=== PATIENT | male | born 1945 | race Caucasian/White ===

== ENCOUNTER 2017-03-21 14:05 | Emergency (ER) | payer MEDICARE, BC ==
[2017-03-21] MEDS ORDERED: Morphine 2 MG/ML Syringe IVPUSH PRN (14:32)
[2017-03-21] MEDS ORDERED: Sodium Chloride 0.9% 10 ML Syringe FLUSH PRN (14:32)
--- NOTE | 2017-03-21 14:37 | EDM.PDOC ---
ED HPI GENERAL MEDICAL PROBLEM - General Chief Complaint: Chest Pain Stated Complaint: CHEST PAINS Time Seen by Provider: 03/21/17 14:20 Source of Information: Reports: Patient, RN Notes Reviewed History Limitations: Reports: No Limitations - History of Present Illness INITIAL COMMENTS - FREE TEXT/NARRATIVE: 72-year-old gentleman presents emergency department day complaint of chest pain , his chest pain is predominantly on the right side it started one hour ago he does have a history of coronary artery disease with myocardial infarction, last stress test was 5 years ago, rates the chest pain 2 out of 10 constant in nature no change with position or exertion did take 7 baby aspirin prior to arrival. Denies any nausea vomiting shortness of breath or diaphoresis, does have a history of reflux disease also hypotensive secondary to nitroglycerin - Related Data Allergies Allergy/AdvReac Type Severity Reaction Status Date / Time No Known Allergies Allergy Verified 02/12/14 08:52 Home Meds: Home Meds Aspirin [Adult Low Dose Aspirin EC] 81 mg PO BID 02/12/14 [History] Metoprolol Succinate 12.5 mg PO DAILY 02/12/14 [History] Simvastatin [Zocor] 40 mg PO BEDTIME 02/12/14 [History] Past Medical History Other HEENT History: upper jaw pain - chronic Cardiovascular History: Reports: CAD, Hypertension, [place], Stents Other Musculoskeletal History: Left hip pain - Past Surgical History Cardiovascular Surgical History: Reports: Coronary Artery Stent Social & Family History - Family History Cardiac: Reports: Bypass, CAD, [place] Neurological: Reports: CVA, TIA - Recreational Drug Use Recreational Drug Use: No ED ROS GENERAL - Review of Systems Review Of Systems: See Below Constitutional: Reports: No Symptoms HEENT: Reports: No Symptoms Respiratory: Reports: No Symptoms. Denies: Shortness of Breath Cardiovascular: Reports: Chest Pain GI/Abdominal: Denies: Abdominal Pain, Nausea, Vomiting Musculoskeletal: Reports: No Symptoms Skin: Reports: No Symptoms Neurological: Reports: No Symptoms Psychiatric: Reports: No Symptoms ED EXAM, GENERAL - Physical Exam Exam: See Below Free Text/Narrative:: General: Male, not in any distress, alert and oriented x3 HEENT: head is atraumatic normocephalic, eyes pupils equal round reactive to light, sclera clear no conjunctivitis appreciated. Ears tympanic membranes clear and figueroa landmarks and light reflex are present bilaterally canals are clear. Nose no septal deviation, nares are clear, no blood present. Mouth mucosa is moist and pink no erythema or exudate noted in soft palate, tongue is midline uvula is midline, dentition is intact. Neck: Supple no thyromegaly no tracheal deviation. Nodes: Cervical nodes subclavicular nodes nontender no palpable lymphadenopathy noted. Lungs: clear to auscultation bilaterally with symmetrical respirations, no adventitious noise appreciated. CV: Regular rate and rhythm S1 and S2 appreciated no murmurs rubs or gallops noted. Chest no tenderness to palpation Abdomen: Soft, nontender, no palpable masses or organomegaly appreciated, no distention no guarding bowel sounds are present, . Neuro: Cranial nerves II through XII grossly intact Skin: Warm and dry, intact Extremities: No lower extremity edema appreciated, pedal pulse is +2. Course - Vital Signs Last Recorded V/S: Last Vital Signs Temp 98.2 F 03/21/17 14:28 Pulse 58 L 03/21/17 17:17 Resp 19 03/21/17 17:17 BP 117/75 03/21/17 17:17 Pulse Ox 95 03/21/17 17:17 - Orders/Labs/Meds Orders: Active Orders 24 hr Category Date Time Status Cardiac Monitoring [RC] .As Directed Care 03/21/17 14:32 Active EKG Documentation Completion [RC] ASDIRECTED Care 03/21/17 14:33 Active Peripheral IV Care [RC] . DIRECTED Care 03/21/17 14:33 Active Chest 1V Frontal [CR] Stat Exams 03/21/17 14:33 Taken Heparin Sodium/D5W [Heparin 25,000 Units in D5W 500 ML] Med 03/21/17 17:15 Active 25,000 units in 500 ml IV TITRATE Morphine Med 03/21/17 14:32 Active 2 mg IVPUSH Q10M PRN Sodium Chloride 0.9% [Saline Flush] Med 03/21/17 14:32 Active 10 ml FLUSH ASDIRECTED PRN Peripheral IV Insertion Adult [OM.PC] Stat Oth 03/21/17 14:32 Ordered Saline Lock Insert [OM.PC] Stat Oth 03/21/17 14:32 Ordered EKG 12 Lead [EK] Stat Ther 03/21/17 14:33 Ordered Medication Orders Heparin Sodium/Dextrose (Heparin 25,000 Units In D5w 500 Ml) 25,000 units in 500 mls @ 0 mls/hr IV TITRATE ODALIS; 12 UNITS/KG/HR PRN Reason: Protocol Morphine Sulfate (Morphine) 2 mg IVPUSH Q10M PRN PRN Reason: Chest Pain Stop: 03/22/17 14:32 Sodium Chloride (Saline Flush) 10 ml FLUSH ASDIRECTED PRN PRN Reason: Keep Vein Open Labs: Laboratory Tests 03/21/17 03/21/17 03/21/17 Range/Units 14:44 14:44 16:35 WBC 5.0 (4.5-11.0) K/uL RBC 4.60 (4.30-5.90) M/uL Hgb 14.0 (12.0-15.0) g/dL Hct 40.8 (40.0-54.0) % MCV 89 (80-98) fL MCH 30 (27-31) pg MCHC 34 (32-36) % Plt Count 155 (150-400) K/uL Neut % (Auto) 49 (36-66) % Lymph % (Auto) 36 (24-44) % [place] % (Auto) 13 H (2-6) % Eos % (Auto) 2 (2-4) % Baso % (Auto) 1 (0-1) % Sodium 142 (140-148) mmol/L Potassium 4.0 (3.6-5.2) mmol/L Chloride 108 (100-108) mmol/L Carbon Dioxide 25 (21-32) mmol/L Anion Gap 8.6 (5.0-14.0) mmol/L BUN 19 H (7-18) mg/dL Creatinine 0.9 (0.8-1.3) mg/dL Est Cr Clr Drug Dosing 71.40 mL/min Estimated GFR (MDRD) > 60 (>60) Glucose 91 (74-106) mg/dL Calcium 8.1 L (8.5-10.1) mg/dL Total Bilirubin 1.0 (0.2-1.0) mg/dL AST 25 (15-37) U/L ALT 29 (12-78) U/L Alkaline Phosphatase 84 (46-116) U/L CK-MB (CK-2) 2.1 2.0 (0-3.6) mg/mL Troponin I 0.047 0.072 H* (0.000-0.056) ng/mL Total Protein 6.8 (6.4-8.2) g/dL Albumin 3.4 (3.4-5.0) g/dL Globulin 3.4 (2.3-3.5) g/dL Albumin/Globulin Ratio 1.0 L (1.2-2.2) Meds: Medications Generic Name Dose Route Start Last Admin Trade Name Freq PRN Reason Stop Dose Admin Heparin Sodium/Dextrose 25,000 units in 500 mls @ 0 mls/hr 03/21/17 17:15 Heparin 25,000 Units In D5w 500 Ml IV TITRATE ODALIS Protocol 12 UNITS/KG/HR Morphine Sulfate 2 mg 03/21/17 14:32 Morphine IVPUSH 03/22/17 14:32 Q10M PRN Chest Pain Sodium Chloride 10 ml 03/21/17 14:32 Saline Flush FLUSH ASDIRECTED PRN Keep Vein Open Discontinued Medications Generic Name Dose Route Start Last Admin Trade Name Freq PRN Reason Stop Dose Admin Clopidogrel Bisulfate 300 mg 03/21/17 17:14 03/21/17 17:31 Plavix PO 03/21/17 17:15 300 mg ONETIME ONE Administration Heparin Sodium (Porcine) 4,000 units 03/21/17 17:14 03/21/17 17:33 Heparin Sodium IVPUSH 03/21/17 17:15 4,000 units ONETIME ONE Administration - Re-Assessments/Exams Free Text/Narrative Re-Assessment/Exam: 03/21/17 16:04 heart score is 6 Departure - Departure Time of Disposition: 17:37 Disposition: DC/Tfer to Acute Hospital 02 Reason for Transfer *Q: Primary PCI Indicated Condition: Good Clinical Impression: NSTEMI (non-ST elevated myocardial infarction) Referrals: PCP,None [Primary Care Provider] - Forms: ED Department Discharge - My Orders Last 24 Hours: My Active Orders 03/21/17 14:32 Cardiac Monitoring [RC] .As Directed Morphine 2 mg IVPUSH Q10M PRN Sodium Chloride 0.9% [Saline Flush] 10 ml FLUSH ASDIRECTED PRN Peripheral IV Insertion Adult [OM.PC] Stat Saline Lock Insert [OM.PC] Stat 03/21/17 14:33 EKG Documentation Completion [RC] ASDIRECTED Peripheral IV Care [RC] . DIRECTED Chest 1V Frontal [CR] Stat EKG 12 Lead [EK] Stat 03/21/17 17:15 Heparin Sodium/D5W [Heparin 25,000 Units in D5W 500 ML] 25,000 units in 500 ml IV TITRATE - Assessment/Plan Last 24 Hours: My Active Orders 03/21/17 14:32 Cardiac Monitoring [RC] .As Directed Morphine 2 mg IVPUSH Q10M PRN Sodium Chloride 0.9% [Saline Flush] 10 ml FLUSH ASDIRECTED PRN Peripheral IV Insertion Adult [OM.PC] Stat Saline Lock Insert [OM.PC] Stat 03/21/17 14:33 EKG Documentation Completion [RC] ASDIRECTED Peripheral IV Care [RC] . DIRECTED Chest 1V Frontal [CR] Stat EKG 12 Lead [EK] Stat 03/21/17 17:15 Heparin Sodium/D5W [Heparin 25,000 Units in D5W 500 ML] 25,000 units in 500 ml IV TITRATE Plan: Assessment Acuity = acute Site and laterality = non-ST elevation myocardial infarction complicated patient with known history of coronary artery disease, hypertension and dyslipidemia Etiology = suspicious for coronary artery disease exacerbation Manifestations = chest pain Location of injury = Home Lab values = CBC, CMP unremarkable troponin initially 0.047, repeat troponin 2 hours later 0.072, EKG demonstrates a sinus rhythm Q waves appreciated in [address] changes noted EKG is similar to 2016, chest x-ray I did review films myself I cannot appreciate any acute process, the official read from radiology is pending Plan Discussed the case with hospitalist converter skimmer at [facility] Dr. Dos Santos who kindly accepted the patient in transport he was given 300 mg of Plavix 4000 unit bolus of heparin and will be started on a heparin drip in route , he will be transferred via EMS services ground Patient was in agreement with the plan all questions were answered,. This note was dictated using [employer] voice recognition software please call with any questions.
[2017-03-21] MEDS ORDERED: Heparin Sodium 5,000 Units/ML Vial IVPUSH ONE (17:14)
[2017-03-21] MEDS ORDERED: Clopidogrel 75 MG Tab PO ONE (17:14)
[2017-03-21] MEDS ORDERED: Heparin Sodium/D5W 25,000 UNITS/500 ML BAG IV SCH (17:15)
[2017-03-21] MEDS ORDERED: Nitroglycerin 0.4 MG Tab.SL SL ONE (18:16)
[2017-03-21 18:24] VITALS: BP 140/92
--- NOTE | 2017-03-22 08:56 | CR ---
Chest 1V Frontal HISTORY: Chest Pain COMPARISON: 12/20/2015 FINDINGS: Lungs appear clear and normally aerated. Heart size is felt to be within normal limits for the AP cassidy hnique. No hilar or mediastinal abnormality is seen. There is no vascular redistribution or pleural f luid. Bony structures and soft tissues are unremarkable. IMPRESSION: No acute chest abnormality or significant interval change is identified.
== END 2017-03-21 18:30 ==
LOC: JP.ED 14:05
DX: I21.4 Non-ST elevation (NSTEMI) myocardial infarction (principal); I10 Essential (primary) hypertension; I25.2 Old myocardial infarction; I25.10 Atherosclerotic heart disease of native coronary artery without angina pectoris; Z95.5 Presence of coronary angioplasty implant and graft; Z79.82 Long term (current) use of aspirin; Z79.899 Other long term (current) drug therapy
CPT/HCPCS: 36415; 71010; 80053; 82553; 84484; 85025; 93005; 96374; 96375; 99285; A9270; J1644; 93010

== ENCOUNTER 2017-11-05 10:21 | Emergency (ER) | payer MEDICARE, BC ==
[2017-11-05 10:43] VITALS: BP 125/69
--- NOTE | 2017-11-05 11:16 | EDM.PDOC ---
ED HPI GENERAL MEDICAL PROBLEM - General Chief Complaint: Neuro Symptoms/Deficits Stated Complaint: DIZZY Time Seen by Provider: 11/05/17 11:16 Source of Information: Reports: Patient, Family History Limitations: Reports: No Limitations - History of Present Illness INITIAL COMMENTS - FREE TEXT/NARRATIVE: pt arrived with afeeling that he is off balance. He has a low grade headache. He has had long standing problems with tightness in his nerck. He has not had this in the past. hE WAs mildly incontinent of urine last nite. Onset: Other ( started early this am. He did cut branches for several hours yesterday His head was in a tipped back position. . ) Duration: Hour(s): Location: Reports: Head Associated Symptoms: Reports: No Other Symptoms - Related Data Allergies Allergy/AdvReac Type Severity Reaction Status Date / Time No Known Allergies Allergy Verified 11/05/17 10:49 Home Meds: Home Meds Aspirin [Adult Low Dose Aspirin EC] 81 mg PO BEDTIME 02/12/14 [History] Metoprolol Succinate 12.5 mg PO BEDTIME 02/12/14 [History] Simvastatin [Zocor] 40 mg PO BEDTIME 02/12/14 [History] Ticagrelor [Brilinta] 90 mg PO BID 11/05/17 [History] Past Medical History Other HEENT History: upper jaw pain - chronic Cardiovascular History: Reports: CAD, [place], Stents Gastrointestinal History: Reports: GERD Other Musculoskeletal History: Left hip pain Psychiatric History: Reports: Depression - Past Surgical History Cardiovascular Surgical History: Reports: Coronary Artery Stent Social & Family History - Family History Cardiac: Reports: Bypass, CAD, [place] Neurological: Reports: CVA, TIA - Tobacco Use Smoking Status *Q: Never Smoker - Caffeine Use Caffeine Use: Reports: Coffee Other Caffeine Use: 2-3 cupse - Recreational Drug Use Recreational Drug Use: No ED ROS GENERAL - Review of Systems Review Of Systems: See Below Constitutional: Reports: No Symptoms HEENT: Reports: No Symptoms Respiratory: Reports: No Symptoms Cardiovascular: Reports: No Symptoms Endocrine: Reports: No Symptoms GI/Abdominal: Reports: No Symptoms : Reports: No Symptoms Musculoskeletal: Reports: Other (pt has chronic tightnss in the post cervical area. ) Skin: Reports: No Symptoms Neurological: Reports: Other ( Pt has a low grade headache and pt fels off balance. ) Psychiatric: Reports: No Symptoms ED EXAM, NEURO - Physical Exam Exam: See Below Text/Narrative:: pt is feeling off balance today. Exam Limited By: No Limitations General Appearance: Alert, No Apparent Distress, Other (pupils are equal and reactive) Ears: Normal TMs Nose: Normal Inspection Throat/Mouth: Normal Inspection Head Exam: Atraumatic Neck: Normal Inspection Respiratory/Chest: No Respiratory Distress Cardiovascular: Regular Rate, Rhythm GI/Abdominal: Soft, Non-Tender (Male) Exam: Deferred Rectal (Males) Exam: Deferred Neurological: Alert, Oriented x 3 Back Exam: Normal Inspection Extremities: Normal Inspection Psychiatric: Normal Affect Course - Vital Signs Last Recorded V/S: Last Vital Signs Temp 35.4 C 11/05/17 10:56 Pulse 54 L 11/05/17 10:56 Resp 16 11/05/17 10:56 BP 125/69 11/05/17 10:56 Pulse Ox 97 11/05/17 10:56 Orthostatic Blood Pressure [ 133/87 Standing] Orthostatic Blood Pressure [ 149/91 Sitting] Orthostatic Blood Pressure [ 120/73 Supine] - Orders/Labs/Meds Orders: Active Orders 24 hr Category Date Time Status UA W/MICROSCOPIC [URIN] Urgent Lab 11/05/17 12:02 Ordered Labs: Laboratory Tests 11/05/17 11/05/17 11/05/17 Range/Units 11:20 11:20 12:02 WBC 6.1 (4.5-11.0) K/uL RBC 4.45 (4.30-5.90) M/uL Hgb 13.8 (12.0-15.0) g/dL Hct 40.1 (40.0-54.0) % MCV 90 (80-98) fL MCH 31 (27-31) pg MCHC 34 (32-36) % Plt Count 151 (150-400) K/uL Neut % (Auto) 58 (36-66) % Lymph % (Auto) 28 (24-44) % [place] % (Auto) 11 H (2-6) % Eos % (Auto) 3 (2-4) % Baso % (Auto) 0 (0-1) % Sodium 140 (140-148) mmol/L Potassium 4.6 (3.6-5.2) mmol/L Chloride 106 (100-108) mmol/L Carbon Dioxide 27 (21-32) mmol/L Anion Gap 6.9 (5.0-14.0) mmol/L BUN 15 (7-18) mg/dL Creatinine 0.9 (0.8-1.3) mg/dL Est Cr Clr Drug Dosing 76.37 mL/min Estimated GFR (MDRD) > 60 (>60) Glucose 80 (74-106) mg/dL Calcium 8.3 L (8.5-10.1) mg/dL Total Bilirubin 2.0 H D (0.2-1.0) mg/dL AST 24 (15-37) U/L ALT 30 (12-78) U/L Alkaline Phosphatase 85 (46-116) U/L Total Protein 6.2 L (6.4-8.2) g/dL Albumin 3.4 (3.4-5.0) g/dL Globulin 2.8 (2.3-3.5) g/dL Albumin/Globulin Ratio 1.2 (1.2-2.2) Urine Color Yellow Urine Appearance Clear Urine pH 7.0 (4.5-8.0) Ur Specific [place] 1.005 L (1.008-1.030) Urine Protein Negative (NEGATIVE) mg/dL Urine Glucose (UA) Normal (NEGATIVE) mg/dL Urine Ketones Negative (NEGATIVE) mg/dL Urine Occult Blood Negative (NEGATIVE) Urine Nitrite Negative (NEGAITVE) Urine Bilirubin Negative (NEGATIVE) Urine Urobilinogen Normal (NORMAL) mg/dL Ur Leukocyte Esterase Negative (NEGATIVE) Urine RBC Not seen (0-5) Urine WBC Not seen (0-5) Ur Epithelial Cells Not seen Amorphous Sediment Not seen Urine Bacteria Not seen Urine Mucus Not seen - Re-Assessments/Exams Free Text/Narrative Re-Assessment/Exam: 11/05/17 12:58 lab work was normal, cat scan of the head showed no acute issues. Departure - Departure Time of Disposition: 12:47 Disposition: Home, Self-Care 01 Condition: Fair Clinical Impression: Balance disorder, Cervical paraspinal muscle spasm - Discharge Information Instructions: Vertigo, [id number] Referrals: PCP,None [Primary Care Provider] - Forms: ED Department Discharge Care Plan Goals: massagE to the cervical area post, moist warm packs, If pt gets worse rt for a recheck[facility] a COPY OF CAT SCAN REPORT AND LABS TO GO WITH HIM. - My Orders Last 24 Hours: My Active Orders 11/05/17 12:02 UA W/MICROSCOPIC [URIN] Urgent - Assessment/Plan Last 24 Hours: My Active Orders 11/05/17 12:02 UA W/MICROSCOPIC [URIN] Urgent
--- NOTE | 2017-11-05 12:21 | CT ---
Head wo Cont INDICATION: off balance, slight headache TECHNIQUE: CT images of the head obtained without IV contrast. Dosage reduction and iterative reconstruction techniques employed. COMPARISON: 02/12/2014 FINDINGS: No acute intracranial abnormality. No hemorrhage, edema or mass effect. 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 No signs of acute ischemic change. The ventricles are normal size. Skull intact. Visualized paranasal sinuses clear. IMPRESSION: Nothing acute.
== END 2017-11-05 12:58 | disposition home or self-care (01) ==
LOC: JP.ED 10:21
DX: N32.9 Bladder disorder, unspecified (principal); M62.838 Other muscle spasm; I25.2 Old myocardial infarction; Z79.899 Other long term (current) drug therapy
CPT/HCPCS: 36415; 70450; 70450-26; 80053; 81001; 85025; 99284-25

== ENCOUNTER 2019-03-10 06:30 | Day surgery (SDC) | payer OTHER ==
[2019-03-10] MEDS ORDERED: Sodium Chloride 0.9% 1,000 ML IV SCH (07:00)
[2019-03-10] MEDS ORDERED: Midazolam 1 MG/ML 2 ML SDV ONE (07:16)
[2019-03-10] MEDS ORDERED: Propofol 200 MG/20 ML SDV ONE (07:16)
[2019-03-10] MEDS ORDERED: fentaNYL 100 MCG/2 ML SDV ONE (07:16)
[2019-03-10 09:35] VITALS: BP 102/72; PULSE 62
--- NOTE | 2019-03-10 10:42 | OR ---
DATE OF PROCEDURE: 03/10/2019 SURGEON: Nirav Cedeno MD PROCEDURE: Colonoscopy. FINDINGS: Transverse colon polyp, approximately 5 mm, completely removed using snare. COMPLICATIONS: None. WOOD FINISHER: None. PREOPERATIVE DIAGNOSIS: Screening colonoscopy/history of colon polyps. POSTOPERATIVE DIAGNOSIS: Screening colonoscopy/history of colon polyps. RISKS: Risks, benefits, alternatives, and limitations including, but not limited to infection, bleeding, and perforation were explained to the patient, who wished to proceed. PROCEDURE IN DETAIL: The patient was placed in a left lateral decubitus position. Digital rectal exam was performed without abnormality. Scope was introduced and advanced atraumatically to the ileocecal valve. The scope was brought back to the ascending, transverse, descending colon, and retroflexed. The aforementioned polyp was identified and completely removed using snare. The patient was noted to have diverticulosis which would be described as mild and mostly limited to sigmoid colon without evidence of diverticulitis or bleeding. No abnormalities on retroflexion. The patient tolerated the procedure well. Nirav Cedeno MD /[id number]
== END 2019-03-10 09:44 | disposition home or self-care (01) ==
LOC: JP.SDS 06:30
PROVIDERS: ATTEND Surgery
DX: Z12.11 Encounter for screening for malignant neoplasm of colon (principal); D12.3 Benign neoplasm of transverse colon; K57.30 Diverticulosis of large intestine without perforation or abscess without bleeding; K21.9 Gastro-esophageal reflux disease without esophagitis; I25.10 Atherosclerotic heart disease of native coronary artery without angina pectoris; E78.5 Hyperlipidemia, unspecified; I51.7 Cardiomegaly; Z86.010 Personal history of colon polyps
CPT/HCPCS: 45385; 88305; J2250; J2704; J3010; J7030

== ENCOUNTER 2019-03-13 16:28 | Emergency (ER) | payer MEDICARE, BC ==
--- NOTE | 2019-03-13 17:08 | EDM.PDOC ---
<OfficerJose - Last Filed: 03/13/19 17:05> ED HPI GENERAL MEDICAL PROBLEM - General Chief Complaint: Abdominal Pain Stated Complaint: LOWER RIGHT SIDE PAIN Time Seen by Provider: 03/13/19 16:59 Source of Information: Reports: Patient, Family, RN Notes Reviewed History Limitations: Reports: No Limitations - History of Present Illness INITIAL COMMENTS - FREE TEXT/NARRATIVE: 74-year-old gentleman presents emergency department today complaint of right sided abdominal pain, he states the pain started about 24 hours after his colonoscopy which was 2 days ago. States he has no troubles the colonoscopy syndrome from when well he still passing gas no nausea vomiting no shortness of breath no chest pain no diaphoresis no fevers. Pain is located in the area of his hernia repair approximately 20 years ago no other abdominal surgeries does have a history of cardiac stenting Right Lower Abdomen Pain Score (Numeric/FACES): 4 - Related Data Allergies Allergy/AdvReac Type Severity Reaction Status Date / Time No Known Allergies Allergy Verified 03/13/19 16:48 Home Meds: Home Meds Aspirin [Adult Low Dose Aspirin EC] 81 mg PO BEDTIME 02/12/14 [History] Metoprolol Succinate 12.5 mg PO BEDTIME 02/12/14 [History] atorvaSTATin [Lipitor] 40 mg PO BEDTIME 03/06/19 [History] Pantoprazole [ProTONIX] 40 mg PO DAILY 03/13/19 [History] Ticagrelor [Brilinta] 90 mg PO BID 03/13/19 [History] Past Medical History Other HEENT History: upper jaw pain - chronic Cardiovascular History: Reports: CAD, High Cholesterol, [place], Stents Gastrointestinal History: Reports: Colon Polyp, GERD Musculoskeletal History: Reports: Arthritis, Other (See Below) Other Musculoskeletal History: Left hip pain Neurological History: Reports: Other (See Below) Other Neuro History: "compression fracture in upper spine" Psychiatric History: Reports: Anxiety, Depression Dermatologic History: Reports: None - Infectious Disease History Infectious Disease History: Reports: Chicken Pox, Measles - Past Surgical History Cardiovascular Surgical History: Reports: Coronary Artery Stent GI Surgical History: Reports: Colonoscopy, EGD, Hernia, Inguinal Neurological Surgical History: Reports: None Musculoskeletal Surgical History: Reports: None Dermatological Surgical History: Reports: Skin Biopsy Social & Family History - Family History Family Medical History: Noncontributory Cardiac: Reports: Bypass, CAD, [place] Neurological: Reports: CVA, TIA - Tobacco Use Smoking Status *Q: Never Smoker - Caffeine Use Caffeine Use: Reports: Coffee Other Caffeine Use: 2-3 cupse - Recreational Drug Use Recreational Drug Use: No ED ROS GENERAL - Review of Systems Review Of Systems: See Below Constitutional: Reports: No Symptoms HEENT: Reports: No Symptoms Respiratory: Reports: No Symptoms Cardiovascular: Reports: No Symptoms GI/Abdominal: Reports: Abdominal Pain, Flatus. Denies: Nausea, Vomiting : Reports: No Symptoms ED EXAM, GI/ABD - Physical Exam Exam: See Below Exam Limited By: No Limitations General Appearance: Alert, WD/WN, No Apparent Distress Respiratory/Chest: No Respiratory Distress, Lungs Clear, Normal Breath Sounds, No Accessory Muscle Use, Chest Non-Tender Cardiovascular: Regular Rate, Rhythm, No Murmur GI/Abdominal Exam: Soft, Non-Tender Course - Vital Signs Last Recorded V/S: Last Vital Signs Temp 36.7 C 03/13/19 16:51 Pulse 64 03/13/19 19:20 Resp 16 03/13/19 19:20 BP 122/69 03/13/19 19:20 Pulse Ox 94 L 03/13/19 16:51 - Orders/Labs/Meds Labs: Laboratory Tests 03/13/19 03/13/19 03/13/19 Range/Units 17:04 17:04 17:04 WBC 5.9 (4.5-11.0) K/uL RBC 4.34 (4.30-5.90) M/uL Hgb 13.4 (12.0-15.0) g/dL Hct 39.2 L (40.0-54.0) % MCV 90 (80-98) fL MCH 31 (27-31) pg MCHC 34 (32-36) % Plt Count 143 L (150-400) K/uL Neut % (Auto) 55 (36-66) % Lymph % (Auto) 31 (24-44) % [place] % (Auto) 11 H (2-6) % Eos % (Auto) 3 (2-4) % Baso % (Auto) 0 (0-1) % Sodium 144 (140-148) mmol/L Potassium 4.1 (3.6-5.2) mmol/L Chloride 108 (100-108) mmol/L Carbon Dioxide 30 (21-32) mmol/L Anion Gap 6.2 (5.0-14.0) mmol/L BUN 19 H (7-18) mg/dL Creatinine 0.9 (0.8-1.3) mg/dL Est Cr Clr Drug Dosing 69.36 mL/min Estimated GFR (MDRD) > 60 (>60) Glucose 109 H (74-106) mg/dL Lactic Acid 1.4 (0.4-2.0) mmol/L Calcium 8.3 L (8.5-10.1) mg/dL Total Bilirubin 1.2 H (0.2-1.0) mg/dL AST 18 (15-37) U/L ALT 21 (12-78) U/L Alkaline Phosphatase 92 (46-116) U/L Troponin I < 0.017 (0.000-0.056) ng/mL Total Protein 6.2 L (6.4-8.2) g/dL Albumin 3.3 L (3.4-5.0) g/dL Globulin 2.9 (2.3-3.5) g/dL Albumin/Globulin Ratio 1.1 L (1.2-2.2) Lipase 108 (73-393) U/L Urine Color (YELLOW) Urine Appearance (CLEAR) Urine pH (5.0-8.0) Ur Specific [place] (1.008-1.030) Urine Protein (NEGATIVE) mg/dL Urine Glucose (UA) (NEGATIVE) mg/dL Urine Ketones (NEGATIVE) mg/dL Urine Occult Blood (NEGATIVE) Urine Nitrite (NEGATIVE) Urine Bilirubin (NEGATIVE) Urine Urobilinogen (0.2-1.0) EU/dL Ur Leukocyte Esterase (NEGATIVE) Urine RBC (0-5) Urine WBC (0-5) Ur Epithelial Cells Amorphous Sediment Urine Bacteria Urine Mucus 03/13/19 Range/Units 17:09 WBC (4.5-11.0) K/uL RBC (4.30-5.90) M/uL Hgb (12.0-15.0) g/dL Hct (40.0-54.0) % MCV (80-98) fL MCH (27-31) pg MCHC (32-36) % Plt Count (150-400) K/uL Neut % (Auto) (36-66) % Lymph % (Auto) (24-44) % [place] % (Auto) (2-6) % Eos % (Auto) (2-4) % Baso % (Auto) (0-1) % Sodium (140-148) mmol/L Potassium (3.6-5.2) mmol/L Chloride (100-108) mmol/L Carbon Dioxide (21-32) mmol/L Anion Gap (5.0-14.0) mmol/L BUN (7-18) mg/dL Creatinine (0.8-1.3) mg/dL Est Cr Clr Drug Dosing mL/min Estimated GFR (MDRD) (>60) Glucose (74-106) mg/dL Lactic Acid (0.4-2.0) mmol/L Calcium (8.5-10.1) mg/dL Total Bilirubin (0.2-1.0) mg/dL AST (15-37) U/L ALT (12-78) U/L Alkaline Phosphatase (46-116) U/L Troponin I (0.000-0.056) ng/mL Total Protein (6.4-8.2) g/dL Albumin (3.4-5.0) g/dL Globulin (2.3-3.5) g/dL Albumin/Globulin Ratio (1.2-2.2) Lipase (73-393) U/L Urine Color Yellow (YELLOW) Urine Appearance Clear (CLEAR) Urine pH 6.0 (5.0-8.0) Ur Specific [place] >= 1.030 (1.008-1.030) Urine Protein Negative (NEGATIVE) mg/dL Urine Glucose (UA) Negative (NEGATIVE) mg/dL Urine Ketones Negative (NEGATIVE) mg/dL Urine Occult Blood Negative (NEGATIVE) Urine Nitrite Negative (NEGATIVE) Urine Bilirubin Negative (NEGATIVE) Urine Urobilinogen 0.2 (0.2-1.0) EU/dL Ur Leukocyte Esterase Negative (NEGATIVE) Urine RBC 0-5 (0-5) Urine WBC Not seen (0-5) Ur Epithelial Cells Not seen Amorphous Sediment Not seen Urine Bacteria Not seen Urine Mucus Rare Meds: Medications Discontinued Medications Generic Name Dose Route Start Last Admin Trade Name Freq PRN Reason Stop Dose Admin Lactated Ringer's 1,000 mls @ 999 mls/hr 03/13/19 18:10 03/13/19 18:28 Ringers, Lactated IV 03/13/19 19:10 999 mls/hr BOLUS ONE Administration Sodium Chloride 79 mls @ 0 mls/hr 03/13/19 18:30 03/13/19 18:42 Normal Saline IV 3 mls/hr ASDIRECTED ODALIS Administration KVO Iopamidol 128 ml 03/13/19 18:30 03/13/19 18:41 Isovue-300 (61%) IV 128 ml . DIRECTED ODALIS Administration Sodium Chloride 10 ml 03/13/19 18:10 03/13/19 18:42 Saline Flush FLUSH 10 ml ASDIRECTED PRN Administration Keep Vein Open Sodium Chloride 10 ml 03/13/19 18:17 03/13/19 18:30 Saline Flush FLUSH 03/13/19 18:18 10 ml ONETIME ONE Administration Departure - Departure Disposition: Home, Self-Care 01 Clinical Impression: Constipation - Discharge Information Instructions: Constipation, Adult, [id number] Referrals: PCP,None [Primary Care Provider] - Forms: ED Department Discharge Care Plan Goals: ducolax 2 tabs tonight for constipation, push fluids, tylenol and motrin for pain. <Dorothea Ren - Last Filed: 03/16/19 18:17> Course - Re-Assessments/Exams Free Text/Narrative Re-Assessment/Exam: 03/13/19 20:15 pt had a cat scan of the abdoman which was neg for free air or any explanation of the pain. He does have alot of stool in the rt colon so I do feel like he needs to do a clean out. He will take 2 ducol;ax tabs tonight. Departure - Departure Time of Disposition: 20:16 Condition: Fair
--- NOTE | 2019-03-13 18:06 | CRLCR ---
Indication: Status post cystoscopy, right lower abdominal pain Technique: KUB 1 view Comparison: None Findings/Impression: : Questionable free air underneath the medial right hemidiaphragm. There is also a round soft tissue density in the left lower quadrant measuring 9 0.0 x [address] for further evaluation of these findings. Surgical clips seen in the pelvis bilaterally. No acute osseous abnormality. Findings discussed with Officer at 6:01 p.m. on March 13, 2019. Dictated by Key Fontaine MD @ Mar 13 2019 5:57PM Signed by Dr. Key Fontaine @ Mar 13 2019 6:04PM
[2019-03-13] MEDS ORDERED: Sodium Chloride 0.9% 10 ML Syringe FLUSH PRN (18:10)
[2019-03-13] MEDS ORDERED: Lactated Ringers 1,000 ML IV ONE (18:10)
[2019-03-13] MEDS ORDERED: Sodium Chloride 0.9% 10 ML Syringe FLUSH ONE (18:17)
[2019-03-13] MEDS ORDERED: Iopamidol 612 MG/ML 150 ML Bottle IV SCH (18:30)
--- NOTE | 2019-03-13 19:42 | CRLCT ---
INDICATION: Pain post C-scope. TECHNIQUE: Volumetric helical scanning of the abdomen and pelvis was performed with 100 cc of Omnipaque 350 contrast material IV. Coronal and sagittal reconstructions were obtained. COMPARISON: None. FINDINGS: No free intraperitoneal fluid or air is demonstrated. The bowel is unremarkable except for a few sigmoid diverticula. The liver is normal in size, shape and attenuation. No bile duct dilation is evident. The spleen is within normal limits. The adrenal glands are unremarkable. The pancreas is within normal limits. A 7 cm left renal cyst is demonstrated. Kidneys are otherwise unremarkable. No lymphadenopathy is evident. The prostate is mildly enlarged. Low anterior abdominal wall postop changes are noted. No free fluid is evident. Subsegmental atelectasis or scarring is present in both lung bases. The heart is normal in size. Calcified coronary arterial plaque is demonstrated. IMPRESSION: 1. Etiology of abdominal pain not evident. 2. Several sigmoid diverticula. 3. 7 cm left renal cyst. 4. Mild prostate enlargement. 5. Coronary artery disease. 6. Low anterior abdominal wall postop changes. Please note that all CT scans at this facility use dose modulation, iterative reconstruction, and/or weight-based dosing when appropriate to reduce radiation dose to as low as reasonably achievable. Dictated by Nguyễn Espinal MD @ Mar 13 2019 7:29PM Signed by Dr. Nguyễn Espinal @ Mar 13 2019 7:40PM
[2019-03-13 19:43] VITALS: BP 122/69; PULSE 64
== END 2019-03-13 20:37 | disposition home or self-care (01) ==
LOC: JP.ED 16:28
DX: K59.00 Constipation, unspecified (principal); I25.10 Atherosclerotic heart disease of native coronary artery without angina pectoris; E78.00 Pure hypercholesterolemia, unspecified; I25.2 Old myocardial infarction; K21.9 Gastro-esophageal reflux disease without esophagitis; M19.90 Unspecified osteoarthritis, unspecified site; Z79.02 Long term (current) use of antithrombotics/antiplatelets; Z79.82 Long term (current) use of aspirin; Z79.899 Other long term (current) drug therapy
CPT/HCPCS: 36415; 74018; 74177; 80053; 81001; 83605; 83690; 84484; 85025; 96360; 99284; J7030; J7120

== ENCOUNTER 2020-11-02 13:14 | Emergency (ER) | payer MEDICARE, BC ==
--- NOTE | 2020-11-02 14:05 | EDM.PDOC ---
ED HPI GENERAL MEDICAL PROBLEM - General Chief Complaint: Cardiovascular Problem Stated Complaint: CHEST PAIN Time Seen by Provider: 11/02/20 13:56 Source of Information: Reports: Patient, Family, RN Notes Reviewed History Limitations: Reports: No Limitations - History of Present Illness INITIAL COMMENTS - FREE TEXT/NARRATIVE: -75-year-old gentleman presents emergency department with a complaint of chest pain, he has known history of coronary artery disease states he said pain for about 5days he has been doing some repetitive motion work which may have contributed this initially had some neck pain but now over the last day or so he has had mainly chest pain on the left side no shortness of breath no diaphoresis, did have some nausea when the pain was quite intense - Related Data Allergies Allergy/AdvReac Type Severity Reaction Status Date / Time No Known Allergies Allergy Verified 11/02/20 13:48 Home Meds: Home Meds Aspirin [Adult Low Dose Aspirin EC] 81 mg PO BEDTIME 02/12/14 [History] Metoprolol Succinate 12.5 mg PO BEDTIME 02/12/14 [History] atorvaSTATin [Lipitor] 40 mg PO BEDTIME 03/06/19 [History] Tamsulosin HCl [Flomax] 0.4 mg PO DAILY 11/02/20 [History] Past Medical History Other HEENT History: upper jaw pain - chronic Cardiovascular History: Reports: CAD, High Cholesterol, [place], Stents Gastrointestinal History: Reports: Colon Polyp, GERD Musculoskeletal History: Reports: Arthritis, Other (See Below) Other Musculoskeletal History: Left hip pain Neurological History: Reports: Other (See Below) Other Neuro History: "compression fracture in upper spine" Psychiatric History: Reports: Anxiety, Depression Dermatologic History: Reports: None - Infectious Disease History Infectious Disease History: Reports: Chicken Pox, Measles - Past Surgical History Cardiovascular Surgical History: Reports: Coronary Artery Stent GI Surgical History: Reports: Colonoscopy, EGD, Hernia, Inguinal Neurological Surgical History: Reports: None Musculoskeletal Surgical History: Reports: None Dermatological Surgical History: Reports: Skin Biopsy Social & Family History - Family History Family Medical History: No Pertinent Family History Cardiac: Reports: Bypass, CAD, [place] Neurological: Reports: CVA, TIA - Tobacco Use Tobacco Use Status *Q: Never Tobacco User - Caffeine Use Caffeine Use: Reports: Coffee Other Caffeine Use: 2-3 cupse - Recreational Drug Use Recreational Drug Use: No ED ROS GENERAL - Review of Systems Review Of Systems: See Below Constitutional: Reports: No Symptoms Respiratory: Denies: Shortness of Breath Cardiovascular: Reports: Chest Pain GI/Abdominal: Reports: Nausea ED EXAM, GENERAL - Physical Exam Exam: See Below Exam Limited By: No Limitations General Appearance: Alert, WD/WN, No Apparent Distress Respiratory/Chest: No Respiratory Distress, Lungs Clear, Normal Breath Sounds, No Accessory Muscle Use, Chest Non-Tender Cardiovascular: Regular Rate, Rhythm, No Murmur GI/Abdominal: Soft, Non-Tender #1 Interpretation EKG Date: 11/02/20 (1415) Time: 14:16 Rhythm: NSR Bandana: Normal P-Wave: Present QRS: Normal ST-T: Normal QT: Normal Comparison: No Change Course - Vital Signs Last Recorded V/S: Last Vital Signs Temp 98.3 F 11/02/20 13:55 Pulse 57 L 11/02/20 15:13 Resp 11 L 11/02/20 15:13 BP 134/77 11/02/20 15:13 Pulse Ox 96 11/02/20 15:13 - Orders/Labs/Meds Orders: Active Orders 24 hr Category Date Time Status Cardiac Monitoring [RC] .As Directed Care 11/02/20 14:01 Active EKG Documentation Completion [RC] ASDIRECTED Care 11/02/20 14:01 Active EKG 12 Lead [EK] Stat Ther 11/02/20 14:01 Ordered Labs: Laboratory Tests 11/02/20 11/02/20 Range/Units 14:10 14:10 WBC 5.8 (4.5-11.0) K/uL RBC 4.55 (4.30-5.90) M/uL Hgb 14.1 (12.0-15.0) g/dL Hct 41.0 (40.0-54.0) % MCV 90 (80-98) fL MCH 31 (27-31) pg MCHC 34 (32-36) % Plt Count 137 L (150-400) K/uL Neut % (Auto) 59 (36-66) % Lymph % (Auto) 30 (24-44) % [place] % (Auto) 9 H (2-6) % Eos % (Auto) 2 (2-4) % Baso % (Auto) 0 (0-1) % Sodium 143 (140-148) mmol/L Potassium 4.4 (3.6-5.2) mmol/L Chloride 107 (100-108) mmol/L Carbon Dioxide 28 (21-32) mmol/L Anion Gap 8.2 (5.0-14.0) mmol/L BUN 15 (7-18) mg/dL Creatinine 1.0 (0.8-1.3) mg/dL Est Cr Clr Drug Dosing 61.51 mL/min Estimated GFR (MDRD) > 60 (>60) Glucose 84 (74-106) mg/dL Calcium 8.8 (8.5-10.1) mg/dL Troponin I < 0.017 (0.000-0.056) ng/mL Departure - Departure Time of Disposition: 15:16 Disposition: Home, Self-Care 01 Condition: Fair Clinical Impression: Chest wall pain Instructions: Chest Wall Pain, [id number] Referrals: PCP,None [Primary Care Provider] - Forms: ED Department Discharge Additional Instructions: Try Tylenol or Motrin as needed for pain control, please followup with your [facility] care provider in 3-5 days if not better, please call return to the emergency department with worsening of symptoms. Sepsis Event Note (ED) - Evaluation Sepsis Screening Result: No Definite Risk - Focused Exam Vital Signs: Vital Signs Temp Pulse Resp BP Pulse Ox 11/02/20 15:13 57 L 11 L 134/77 96 11/02/20 13:55 98.3 F 54 L 14 125/81 95 11/02/20 13:40 98.3 F 54 L 14 125/81 95 - My Orders Last 24 Hours: My Active Orders 11/02/20 14:01 Cardiac Monitoring [RC] .As Directed EKG Documentation Completion [RC] ASDIRECTED EKG 12 Lead [EK] Stat - Assessment/Plan Last 24 Hours: My Active Orders 11/02/20 14:01 Cardiac Monitoring [RC] .As Directed EKG Documentation Completion [RC] ASDIRECTED EKG 12 Lead [EK] Stat Plan: Assessment Acuity = acute Site and laterality = chest wall pain Etiology = probably from repetitive motion injury Manifestations = none Location of injury = Home Lab values = CBC, BMP troponin all within normal limits EKG same as prior EKG chest x-ray shows no acute process Plan I did review lab EKG chest x-ray results with him he is can try some ibuprofen at home and try and change some of the repetitive motion, follow-up primary care 3 to 5 days if not better This note was dictated using [employer] voice recognition software please call with any questions on syntax or grammar.
--- NOTE | 2020-11-02 14:37 | CR ---
CHEST: Portable 11/02/2020 at 1421 CLINICAL HISTORY:Chest pain COMPARISON:2017 FINDINGS: The heart size, pulmonary vascularity and hilar structures are normal. No infiltrate effusion or pneumothorax is seen. IMPRESSION: No acute cardiopulmonary process.
[2020-11-02 15:14] VITALS: BP 134/77; PULSE 57
== END 2020-11-02 15:22 | disposition home or self-care (01) ==
LOC: JP.ED 13:14
DX: R07.89 Other chest pain (principal); E78.00 Pure hypercholesterolemia, unspecified; I25.10 Atherosclerotic heart disease of native coronary artery without angina pectoris; I25.2 Old myocardial infarction; Z95.5 Presence of coronary angioplasty implant and graft; Z79.899 Other long term (current) drug therapy; Z79.82 Long term (current) use of aspirin
CPT/HCPCS: 36415; 71046; 71046-26; 80048; 84484; 85025; 93005; 99284; 99285-25

== ENCOUNTER 2021-11-01 20:59 | Emergency (ER) | payer MEDICARE, BC ==
[2021-11-01] MEDS ORDERED: Pantoprazole 40 MG Tab.CR PO STA (21:12)
[2021-11-01 21:40] LABS: TROPONIN I HIGH SENSITIVITY 10.3 pg/mL (<=60.3)
[2021-11-01] MEDS ORDERED: Sodium Chloride 0.9% 10 ML Syringe FLUSH PRN (22:03)
[2021-11-01] MEDS ORDERED: Iopamidol 755 Mg/ML 100 ML Bottle IV SCH (22:15)
[2021-11-01] MEDS ORDERED: Sodium Chloride 0.9% 100 ML IV SCH (22:15)
[2021-11-01] MEDS ORDERED: Sodium Chloride 0.9% 1,000 ML IV SCH (22:45)
[2021-11-01 23:20] VITALS: BP 124/73; PULSE 61
== END 2021-11-01 23:39 | disposition home or self-care (01) ==
LOC: JP.ED 20:59
DX: K21.00 Gastro-esophageal reflux disease with esophagitis, without bleeding (principal); E78.00 Pure hypercholesterolemia, unspecified; I25.10 Atherosclerotic heart disease of native coronary artery without angina pectoris; I25.2 Old myocardial infarction; Z79.82 Long term (current) use of aspirin; Z79.899 Other long term (current) drug therapy
CPT/HCPCS: 36415; 71045; 71045-26; 71275; 80053; 84484; 85025; 85379; 86140; 93005; 93010; 96374; 99283; 99285-25; A9270-GY; J3490; J7030; Q9967

== ENCOUNTER 2024-02-08 11:14 | Emergency (ER) | payer MEDICARE, BC ==
[2024-02-08] MEDS ORDERED: Sodium Chloride 0.9% 10 ML Syringe FLUSH PRN (11:22)
[2024-02-08] MEDS: Ondansetron 4 MG Tab.DIS PO ONE (11:28)
[2024-02-08 11:37] LABS: BASOPHILS ABSOLUTE AUTO 0.04 K/uL (0.00-0.10); BASOPHILS PERCENT AUTO 0.6 % (0.1-1.3); EOSINOPHILS ABSOLUTE AUTO 0.13 K/uL (0.00-0.40); HEMATOCRIT 38.7 % (38.4-49.7); HEMOGLOBIN 14.1 g/dL (12.9-16.9); IMMATURE GRAN PERCENT AUTO 0.3 % (0.0-0.7); LYMPHOCYTES PERCENT AUTO 31.9 % (11.4-47.7); MEAN CORPUSCULAR HGB CONC 36.4 g/dL (31.6-35.5); MEAN CORPUSCULAR VOLUME 87.8 fL (81.4-99.0); MONOCYTES ABSOLUTE AUTO 0.56 K/uL (0.20-0.90); MONOCYTES PERCENT AUTO 8.5 % (3.3-12.6); NEUTROPHILS ABSOLUTE AUTO 3.73 K/uL (1.0-7.6); NEUTROPHILS PERCENT AUTO 56.7 % (40.0-78.1); PLATELET COUNT,PLT 160 K/uL (130-375); RED BLOOD CELL COUNT 4.41 M/uL (4.14-5.76); WHITE BLOOD CELL COUNT,WBC 6.6 K/uL (3.2-11.0)
[2024-02-08] MEDS: Ondansetron 4 MG Tab.DIS ONE (11:48)
[2024-02-08 11:49] LABS: IMMATURE GRAN ABSOLUTE AUTO 0.02 K/uL (0.00-0.23)
[2024-02-08 11:58] LABS: PROTHROMBIN TIME 10.1 sec (9.2-10.6); PTT,PARTIAL THROMBOPLSTIN TIME 22.6 sec (21.8-27.3)
[2024-02-08 12:01] LABS: ANION GAP 12.6 mmol/L (5.0-14.0); CALCIUM 8.6 mg/dL (8.5-10.1); CREATININE 0.9 mg/dL (0.8-1.3); EST CRCL DRUG DOSING (CG) 65.38 mL/min
[2024-02-08] MEDS: Iopamidol 755 Mg/ML 100 ML Bottle IV SCH (12:24)
[2024-02-08] MEDS: Sodium Chloride 0.9% 100 ML IV SCH (12:24)
[2024-02-08] MEDS: Meclizine 25 MG Tab PO ONE (13:15)
[2024-02-08 13:37] VITALS: BP 127/73; PULSE 53
== END 2024-02-08 15:30 | disposition home or self-care (01) ==
LOC: JP.ED 11:14
DX: R42 Dizziness and giddiness (principal); I25.2 Old myocardial infarction; E78.00 Pure hypercholesterolemia, unspecified; Z79.82 Long term (current) use of aspirin; Z79.899 Other long term (current) drug therapy; Z86.16 Personal history of COVID-19; Z79.01 Long term (current) use of anticoagulants
CPT/HCPCS: 36415; 70450; 70496; 70498; 80048; 82947; 84484; 85025; 85610; 85730; 93005; 96374; 96376; 99284; A9270; J3360; J3490; Q0162; Q9967

== ENCOUNTER 2024-03-18 19:38 | Emergency (ER) | payer OTHER, MEDICARE, BC ==
[2024-03-18 20:33] VITALS: BP 112/66; PULSE 64
== END 2024-03-18 20:27 | disposition home or self-care (01) ==
LOC: JP.ED 19:38
DX: R42 Dizziness and giddiness (principal); I25.10 Atherosclerotic heart disease of native coronary artery without angina pectoris; I25.2 Old myocardial infarction; K21.9 Gastro-esophageal reflux disease without esophagitis; E78.00 Pure hypercholesterolemia, unspecified; Z86.16 Personal history of COVID-19; Z79.899 Other long term (current) drug therapy; Z79.82 Long term (current) use of aspirin
CPT/HCPCS: 99283